=== PATIENT | female | born 1990 | race Caucasian/White ===

== ENCOUNTER 2018-02-20 08:12 | Inpatient (IN) | payer BC ==
[~2018-02-20] VITALS: Ht 157.5 cm; Wt 87.2 kg
[~2018-02-20 08:12] MED LIST: Acyclovir PO; HYDR-3240 PO; IBUP-1222 PO; OXYC-302 PO; PREN1TAB56 PO; RANI75TA12 PO
[2018-02-20] MEDS: D5%-LACTATED RINGERS 1,000 ML IV SCH ×2 (08:13→16:13)
[2018-02-20] MEDS ORDERED: OXYTOCIN 30U/ 0.9% NaCL 500ML 500 ML IV PRN (08:13)
[2018-02-20] MEDS ORDERED: OXYTOCIN 30U/ 0.9% NaCL 500ML 500 ML IV ONE (08:13)
[2018-02-20] MEDS: LACTATED RINGERS 1,000 ML IV SCH ×2 (08:28→12:58)
[2018-02-20] MEDS ORDERED: ONDANSETRON 2MG/ML, 2ML IVPush PRN ×2 (08:30→12:30)
[2018-02-20] MEDS ORDERED: TERBUTALINE 1 MG/ML, 1ML IVPush PRN (08:30)
[2018-02-20] MEDS ORDERED: SODIUM CITRATE/CITRIC ACID 30 ML UDC PO PRN (08:30)
[2018-02-20] MEDS ORDERED: METOCLOPRAMIDE 5 MG/ML, 2ML IVPush PRN (08:30)
[2018-02-20] MEDS ORDERED: FENTANYL PF 100 MCG/2ML IV PRN ×2 (08:30→12:30)
[2018-02-20] MEDS ORDERED: FENTANYL PF 100 MCG/2ML IVPush PRN (08:30)
[2018-02-20] MEDS ORDERED: MISOPROSTOL 200 MCG TABLET ONE (08:38)
[2018-02-20] MEDS ORDERED: OXYTOCIN 30U/ 0.9% NaCL 500ML 500 ML ONE ×2 (08:38→12:48)
[2018-02-20] MEDS ORDERED: LIDOCAINE-MPF 1%, 5ML ONE (08:38)
[2018-02-20] MEDS ORDERED: NEWBORN KIT ONE (08:38)
[2018-02-20 08:41] VITALS: BP 112/70
[2018-02-20 09:06] LABS: BASOPHILS # (AUTO) 0.06 x10^3/uL (0-0.1); BASOPHILS % (AUTO) 1 % (0-1); EOSINOPHILS # (AUTO) 0.08 x10^3/uL (0-0.4); EOSINOPHILS % (AUTO) 1 % (1-7); LYMPHOCYTES # (AUTO) 1.89 x10^3/uL (1-3.4); LYMPHOCYTES % (AUTO) 25 % (22-44); MD NO; MEAN CORPUSCULAR HEMOGLOBIN 25.3 pg (27.0-34.8); MEAN CORPUSCULAR HGB CONC 32.8 g/dL (32.4-35.8); MEAN CORPUSCULAR VOLUME 77.1 fL (80-100); MEAN PLATELET VOLUME 10.2 fL (7.4-10.4); MONOCYTES # (AUTO) 0.46 x10^3/uL (0.2-0.8); MONOCYTES % (AUTO) 6 % (2-9); NEUTROPHILS # (AUTO) 5.16 x10^3/uL (1.8-6.8); NEUTROPHILS % (AUTO) 67 % (42-75); PLATELET COUNT 222 x10^3/uL (130-400); RED BLOOD COUNT 4.76 x10^6/uL (3.82-5.3); RED CELL DISTRIBUTION WIDTH 17.4 % (9.6-15.2)
[2018-02-20] MEDS ORDERED: TERBUTALINE 1 MG/ML, 1ML ONE (11:58)
[2018-02-20] MEDS ORDERED: EPHEDRINE 50 MG/ML, 1ML IVPush PRN (12:30)
[2018-02-20] MEDS ORDERED: ALBUTEROL SULFATE 2.5 MG/3 ML NPPB PRN (12:30)
[2018-02-20] MEDS ORDERED: LABETALOL 5MG/ML, 20ML IV PRN (12:30)
[2018-02-20] MEDS ORDERED: HYDROmorphone 1 MG/ML, 1ML IV PRN (12:30)
[2018-02-20] MEDS ORDERED: OXYcodone 5 MG/5 ML ORAL.SOL UDC PO PRN (12:30)
[2018-02-20] MEDS ORDERED: HYDROcodone/APAP 7.5-325MG/15ML UDC PO PRN (12:30)
[2018-02-20] MEDS ORDERED: PROMETHAZINE 25 MG/ML, 1ML IV PRN (12:30)
[2018-02-20] MEDS ORDERED: MIDAZOLAM 1 MG/ML, 2ML IV PRN (12:30)
[2018-02-20] MEDS ORDERED: hydrALAzine 20 MG/ML, 1ML IV PRN (12:30)
[2018-02-20] MEDS ORDERED: MEPERIDINE/PF 25MG/0.5ML IVPush PRN (12:30)
[2018-02-20] MEDS ORDERED: OXYcodone/APAP 5/325MG TABLET ONE (12:48)
[2018-02-20] MEDS ORDERED: IBUPROFEN 600 MG TABLET ONE (12:48)
[2018-02-20] MEDS: OXYcodone/APAP 5/325MG TABLET PO PRN ×2 (12:56→12:57)
[2018-02-20] MEDS ORDERED: MAGNESIUM HYDROXIDE 8%, 30ML UDC PO PRN (13:00)
[2018-02-20] MEDS ORDERED: METHYLERGONOVINE 0.2 MG/ML IM PRN (13:00)
[2018-02-20] MEDS ORDERED: CARBOPROST TROMETHAMINE 250 MCG/ML, 1ML IM PRN (13:00)
[2018-02-20] MEDS ORDERED: ACETAMINOPHEN 325 MG TABLET PO PRN (13:00)
[2018-02-20] MEDS ORDERED: DIPH,PERTUSS(ACELL),TET VAC/PF NC IM-VACC PRN (13:00)
[2018-02-20] MEDS ORDERED: METOCLOPRAMIDE 5 MG/ML, 2ML IV PRN (13:00)
[2018-02-20] MEDS ORDERED: MEASLES,MUMPS&RUBELLA VACC/PF 0.5 ML SQ-VACC PRN (13:00)
[2018-02-20] MEDS ORDERED: GLYCERIN ADULT SUPP PR PRN (13:00)
[2018-02-20] MEDS ORDERED: OXYcodone/APAP 5/325MG TABLET PO PRN (13:00)
[2018-02-20] MEDS ORDERED: CALCIUM CARBONATE 500 MG TAB.CHEW PO PRN (13:00)
[2018-02-20] MEDS ORDERED: ONDANSETRON 2MG/ML, 2ML IV PRN (13:00)
[2018-02-20] MEDS ORDERED: MISOPROSTOL 200 MCG TABLET SL PRN ×2 (13:00)
[2018-02-20] MEDS ORDERED: RHOGAM FROM BLOOD BANK 1 NOTE EA IM/IV ONE (13:00)
[2018-02-20] MEDS ORDERED: BISACODYL 10 MG SUPP PR PRN (13:00)
[2018-02-20] MEDS: IBUPROFEN 600 MG TABLET PO PRN ×2 (13:05→19:09)
[2018-02-20] MEDS: OXYTOCIN 30U/ 0.9% NaCL 500ML 500 ML IV SCH ×2 (13:24→22:49)
[2018-02-20] MEDS ORDERED: MISOPROSTOL 200 MCG TABLET PR ONE (13:30)
[2018-02-20 14:05] VITALS: BP 113/76
[2018-02-20 15:39] VITALS: BP 115/67
[2018-02-20] MEDS: DOCUSATE 100 MG CAPSULE PO PRN (19:09)
[2018-02-20 19:45] VITALS: BP 115/63
[2018-02-20 20:21] LABS: BASOPHILS # (AUTO) 0.16 x10^3/uL (0-0.1); BASOPHILS % (AUTO) 1 % (0-1); EOSINOPHILS # (AUTO) 0.04 x10^3/uL (0-0.4); EOSINOPHILS % (AUTO) 0 % (1-7); LYMPHOCYTES % (AUTO) 15 % (22-44); MEAN CORPUSCULAR HEMOGLOBIN 25.2 pg (27.0-34.8); MEAN CORPUSCULAR HGB CONC 32.4 g/dL (32.4-35.8); MEAN CORPUSCULAR VOLUME 77.8 fL (80-100); MEAN PLATELET VOLUME 9.5 fL (7.4-10.4); MONOCYTES # (AUTO) 1.03 x10^3/uL (0.2-0.8); MONOCYTES % (AUTO) 6 % (2-9); NEUTROPHILS % (AUTO) 78 % (42-75); PLATELET COUNT 216 x10^3/uL (130-400); RED BLOOD COUNT 4.19 x10^6/uL (3.82-5.3); RED CELL DISTRIBUTION WIDTH 17.4 % (9.6-15.2)
[2018-02-20 20:22] LABS: MD NO
[2018-02-21] MEDS: D5%-LACTATED RINGERS 1,000 ML IV SCH (00:13)
[2018-02-21] MEDS: LACTATED RINGERS 1,000 ML IV SCH (00:13)
[2018-02-21 00:45] VITALS: BP 116/75
[2018-02-21] MEDS: IBUPROFEN 600 MG TABLET PO PRN ×2 (01:17→07:41)
[2018-02-21 03:50] VITALS: BP 97/66
[2018-02-21] MEDS: DOCUSATE 100 MG CAPSULE PO PRN (07:40)
[2018-02-21 07:49] VITALS: BP 114/79
[2018-02-21] MEDS: OXYTOCIN 30U/ 0.9% NaCL 500ML 500 ML IV SCH (08:49)
[2018-02-21] MEDS ORDERED: PRENATAL VIT/IRON/FA 1 EACH TABLET PO SCH (09:00)
[2018-02-21] MEDS ORDERED: IBUP-1222 PO (11:06)
[2018-02-21] MEDS ORDERED: DOCU-131 PO (11:07)
[2018-02-21] MEDS ORDERED: OXYC-302 PO (11:08)
== END 2018-02-21 13:58 | disposition home or self-care (01) | DRG 775 ==
LOC: LDIP 08:12 → 2NW 14:05
PROVIDERS: ADMIT Obstetrics & Gynecology; ATTEND Obstetrics & Gynecology
PROC: 10E0XZZ Delivery of Products of Conception, External Approach (ICD-10-PCS; principal; 2018-02-20)
PROC: 0KQM0ZZ Repair Perineum Muscle, Open Approach (ICD-10-PCS; 2018-02-20)
PROC: 10907ZC Drainage of Amniotic Fluid, Therapeutic from Products of Conception, Via Natural or Artificial Opening (ICD-10-PCS; 2018-02-20)
PROC: 3E0234Z Introduction of Serum, Toxoid and Vaccine into Muscle, Percutaneous Approach (ICD-10-PCS; 2018-02-20)
DX: O99.214 Obesity complicating childbirth (principal); E66.9 Obesity, unspecified; Z37.0 Single live birth; O70.1 Second degree perineal laceration during delivery; Z3A.39 39 weeks gestation of pregnancy; Z79.899 Other long term (current) drug therapy; Z23 Encounter for immunization
CPT/HCPCS: 36415; 85025; 86850; 86900; J2590; J3105; J7120

== ENCOUNTER 2019-10-03 05:30 | Inpatient (IN) ==
[~2019-10-03] VITALS: Ht 157.5 cm; Wt 86.4 kg
[~2019-10-03 05:30] MED LIST changes: +DOCU-131 PO; +RANI-244 PO; -RANI75TA12 PO
[2019-10-03] MEDS ORDERED: FENTANYL/BUPIV./NS/PF 250 ML EPIDCONT SCH ×2 (06:09→09:22)
[2019-10-03] MEDS ORDERED: LACTATED RINGERS 1,000 ML IV SCH ×2 (06:09→09:22)
[2019-10-03] MEDS ORDERED: OXYTOCIN 30U/ 0.9% NaCL 500ML 500 ML IV ONE (06:09)
[2019-10-03] MEDS ORDERED: D5%-LACTATED RINGERS 1,000 ML IV SCH (06:09)
[2019-10-03] MEDS ORDERED: NEWBORN KIT ONE (06:15)
[2019-10-03] MEDS ORDERED: TERBUTALINE 1 MG/ML, 1ML IVPush PRN (06:30)
[2019-10-03] MEDS ORDERED: TERBUTALINE 1 MG/ML, 1ML SQ PRN (06:30)
[2019-10-03] MEDS ORDERED: FENTANYL PF 100 MCG/2ML IV PRN (06:30)
[2019-10-03] MEDS ORDERED: ONDANSETRON 2MG/ML, 2ML IVPush PRN ×2 (06:30→09:30)
[2019-10-03] MEDS ORDERED: FENTANYL PF 100 MCG/2ML IVPush PRN (06:30)
[2019-10-03] MEDS ORDERED: FENTANYL PF 500 MCG, BUPIVACAINE/PF 0.5%, 30ML 62.5 ML in SODIUM CHLORIDE 0.9% 177.5 ML EPIDCONT SCH (06:30)
[2019-10-03] MEDS ORDERED: CALCIUM CARBONATE 500 MG TAB.CHEW PO PRN (06:30)
[2019-10-03] MEDS ORDERED: LIDOCAINE 1%, 20ML ONE (06:39)
[2019-10-03] MEDS ORDERED: MISOPROSTOL 200 MCG TABLET ONE (06:40)
[2019-10-03] MEDS ORDERED: OXYTOCIN 30U/ 0.9% NaCL 500ML 500 ML ONE ×3 (06:40→12:45)
[2019-10-03 06:45] LABS: BASOPHILS # (AUTO) 0.05 x10^3/uL (0-0.1); BASOPHILS % (AUTO) 1 % (0-1); EOSINOPHILS # (AUTO) 0.16 x10^3/uL (0-0.4); EOSINOPHILS % (AUTO) 2 % (1-7); LYMPHOCYTES % (AUTO) 20 % (22-44); MD NO; MEAN CORPUSCULAR HEMOGLOBIN 26.3 pg (27.0-34.8); MEAN CORPUSCULAR HGB CONC 32.2 g/dL (32.4-35.8); MEAN CORPUSCULAR VOLUME 81.5 fL (80-100); MEAN PLATELET VOLUME 9.1 fL (7.4-10.4); MONOCYTES # (AUTO) 0.59 x10^3/uL (0.2-0.8); MONOCYTES % (AUTO) 6 % (2-9); NEUTROPHILS # (AUTO) 7.08 x10^3/uL (1.8-6.8); NEUTROPHILS % (AUTO) 72 % (42-75); PLATELET COUNT 202 x10^3/uL (130-400); RED BLOOD COUNT 4.49 x10^6/uL (3.82-5.3); RED CELL DISTRIBUTION WIDTH 16.2 % (9.6-15.2)
[2019-10-03] MEDS ORDERED: BUPIVACAINE 0.25% ONE (07:32)
[2019-10-03 08:00] VITALS: BP 126/74
[2019-10-03] MEDS ORDERED: NALOXONE 0.4 MG/ML, 1ML IVPush PRN (09:30)
[2019-10-03] MEDS ORDERED: EPHEDRINE 50 MG/ML, 1ML IVPush PRN (09:30)
[2019-10-03] MEDS ORDERED: LACTATED RINGERS 1,000 ML IVBOLUS PRN (09:30)
[2019-10-03] MEDS ORDERED: DIPHENHYDRAMINE 50 MG/ML, 1ML IVPush PRN (09:30)
[2019-10-03] MEDS: OXYTOCIN 30U/ 0.9% NaCL 500ML 500 ML IV SCH ×2 (11:14→12:51)
[2019-10-03] MEDS ORDERED: METHYLERGONOVINE 0.2 MG/ML IM PRN (11:30)
[2019-10-03] MEDS ORDERED: ACETAMINOPHEN 325 MG TABLET PO PRN ×2 (11:30)
[2019-10-03] MEDS ORDERED: MEASLES,MUMPS&RUBELLA VACC/PF 0.5 ML SQ-VACC PRN (11:30)
[2019-10-03] MEDS ORDERED: HYDROcodone/APAP 5/325 TABLET PO PRN ×2 (11:30)
[2019-10-03] MEDS ORDERED: CARBOPROST TROMETHAMINE 250 MCG/ML, 1ML IM PRN (11:30)
[2019-10-03] MEDS ORDERED: RHOGAM FROM BLOOD BANK 1 NOTE EA IM/IV ONE (11:30)
[2019-10-03] MEDS ORDERED: MAGNESIUM HYDROXIDE 8%, 30ML UDC PO PRN (11:30)
[2019-10-03] MEDS ORDERED: METHYLERGONOVINE 0.2 MG/ML IM ONE (12:20)
[2019-10-03] MEDS ORDERED: IBUPROFEN 600 MG TABLET ONE (12:43)
[2019-10-03] MEDS ORDERED: OXYcodone/APAP 5/325MG TABLET ONE (12:44)
[2019-10-03] MEDS: IBUPROFEN 600 MG TABLET PO PRN ×2 (12:47→19:13)
[2019-10-03] MEDS ORDERED: HYDROcodone/APAP 5/325 TABLET ONE (12:49)
[2019-10-03] MEDS ORDERED: TRANEXAMIC ACID 1,000 MG in SODIUM CHLORIDE 0.9% 100 ML IV ONE (13:30)
[2019-10-03 14:45] VITALS: BP 118/78
[2019-10-03 18:00] VITALS: BP 112/73
[2019-10-03] MEDS: DOCUSATE 100 MG CAPSULE PO PRN (19:12)
[2019-10-03 19:44] LABS: BASOPHILS # (AUTO) 0.04 x10^3/uL (0-0.1); BASOPHILS % (AUTO) 0 % (0-1); EOSINOPHILS # (AUTO) 0.16 x10^3/uL (0-0.4); EOSINOPHILS % (AUTO) 1 % (1-7); LYMPHOCYTES # (AUTO) 1.86 x10^3/uL (1-3.4); LYMPHOCYTES % (AUTO) 15 % (22-44); MD YES; MEAN CORPUSCULAR HEMOGLOBIN 25.7 pg (27.0-34.8); MEAN CORPUSCULAR HGB CONC 31.9 g/dL (32.4-35.8); MEAN CORPUSCULAR VOLUME 80.6 fL (80-100); MEAN PLATELET VOLUME 8.9 fL (7.4-10.4); MONOCYTES # (AUTO) 0.44 x10^3/uL (0.2-0.8); MONOCYTES % (AUTO) 4 % (2-9); NEUTROPHILS % (AUTO) 79 % (42-75); PLATELET COUNT 197 x10^3/uL (130-400); RED BLOOD COUNT 4.28 x10^6/uL (3.82-5.3)
[2019-10-03 19:58] LABS: BAND#(MANUAL) 0.36 x10^3/uL; BANDS%(MANUAL) 3 % (0-7); BASOS#(MANUAL) 0.12 x10^3/uL (0-0.1); BASOS% (MANUAL) 1 % (0-1); LYMPH#(MANUAL) 2.54 x10^3/uL (1-3.4); LYMPHS% (MANUAL) 21 % (22-44); MONOS#(MANUAL) 0.48 x10^3/uL (0.3-2.7); MONOS% (MANUAL) 4 % (2-9); SEG#(MANUAL) 8.59 x10^3/uL (1.8-6.8); SEGS% (MANUAL) 71 % (42-75)
[2019-10-03 19:59] LABS: <PLATELET ESTIMATE> ADEQUATE; <PLT MORPHOLOGY> NORMAL PLT MORPH; ANISOCYTOSIS 1+; OVALOCYTES 1+; POLYCHROMASIA 1+
[2019-10-03 20:00] VITALS: BP 98/65
[2019-10-04 00:05] VITALS: BP 103/68
[2019-10-04] MEDS: IBUPROFEN 600 MG TABLET PO PRN ×2 (02:43→08:45)
[2019-10-04 05:30] VITALS: BP 103/72
[2019-10-04] MEDS: OXYTOCIN 30U/ 0.9% NaCL 500ML 500 ML IV SCH (07:02)
[2019-10-04 08:10] VITALS: BP 104/68
[2019-10-04] MEDS: DOCUSATE 100 MG CAPSULE PO PRN (08:10)
[2019-10-04] MEDS ORDERED: HYDR-3240 PO (08:42)
[2019-10-04] MEDS ORDERED: PRENATAL VIT/IRON/FA 1 EACH TABLET PO SCH (09:00)
== END 2019-10-04 12:00 | disposition home or self-care (01) | DRG 807 ==
LOC: LDOP 05:30 → LDIP 06:09 → 2NW 15:01
PROVIDERS: ADMIT Obstetrics & Gynecology; ATTEND Obstetrics & Gynecology
PROC: 10E0XZZ Delivery of Products of Conception, External Approach (ICD-10-PCS; principal; 2019-10-03)
PROC: 0HQ9XZZ Repair Perineum Skin, External Approach (ICD-10-PCS; 2019-10-03)
PROC: 10907ZC Drainage of Amniotic Fluid, Therapeutic from Products of Conception, Via Natural or Artificial Opening (ICD-10-PCS; 2019-10-03)
PROC: 3E0R3BZ Introduction of Anesthetic Agent into Spinal Canal, Percutaneous Approach (ICD-10-PCS; 2019-10-03)
PROC: 00HU33Z Insertion of Infusion Device into Spinal Canal, Percutaneous Approach (ICD-10-PCS; 2019-10-03)
DX: O70.0 First degree perineal laceration during delivery (principal); Z37.0 Single live birth; Z3A.39 39 weeks gestation of pregnancy
CPT/HCPCS: 36415; S0020; 85025; 86850; 86900; G0378; J3010; J2210; J2590; J7050; J7120